=== PATIENT | male | born 1950 | race Caucasian/White ===

== ENCOUNTER 2018-08-23 05:48 | Inpatient (IN) ==
[2018-08-18 12:18] LABS: Apearance,Urine CLEAR (Clear); Bilirubin,Urine Negative (Negative); Blood, Urine Negative (Negative); Glucose,Urine (UA) Negative (Negative); Hyaline Casts,Urine 4 /LPF (0-3); Ketones,Urine 5 mg/dL (Negative); Mucus,Urine Occasional /LPF (Occasional); Nitrite,Urine Negative (Negative); Protein,Urine Negative; RBC,Urine <1 /HPF (0-4); Urine Color Amber (Yellow); WBC,Urine <1 /HPF (0-6)
[2018-08-18 12:20] LABS: Basophils # 0.1 10*3/uL (0.0-0.2); Basophils % 0.5 % (0.0-0.8); Eosinophils # 0.5 10*3/uL (0.0-0.87); Eosinophils % 5.9 % (0.00-10.9); Hematocrit 46.8 VOL% (42.0-52.0); Hemoglobin 15.8 GM/DL (14.0-18.0); Immature Granulocytes % 0.4 %; Lymphocytes # 4.6 10*3/uL (1.4-4.0); Lymphocytes % 49.9 % (21.2-54.2); Mean Corpuscular HGB Conc 33.8 GM/DL (32-36); Mean Corpuscular Hemoglobin 32 PG (27-34); Mean Corpuscular Volume 93.4 FL (87-102); Mean Platelet Volume 9.5 FL (9.6-12.0); Monocytes # 0.7 10*3/uL (0.11-0.8); Monocytes % 7.6 % (1.7-12.7); Neutrophils # 3.3 10*3/uL (1.4-7.4); Neutrophils % 35.7 % (38.7-73.9); Platelet Count 226 T/CUMM (130-400); Red Blood Count 5.01 MC/CUMM (3.8-5.5); Red Cell Distribution Width 13.2 % (9.3-17.3); White Blood Count 9.2 T/CUMM (4-12)
[2018-08-18 12:21] LABS: Immature Granulocytes Absolute 0.04 #
[2018-08-18 12:34] LABS: PT Patient Result 10.9 SECS; Partial Thromboplastin Time 24.7 SECS (0-40)
[2018-08-18 12:59] LABS: Albumin 3.8 G/DL (3.4-5.0); Bilirubin,Total 0.6 MG/DL (0.2-1.0); Calcium 8.6 MG/DL (8.5-10.1); Osmolality,Calculated 273.8 MOS/KG (273-304); Potassium 4.6 MMOL/L (3.5-5.1); Total Protein 7.6 G/DL (6.4-8.3)
[2018-08-18 13:01] LABS: Eosinophils 5 % (0-10); Lymphocytes 47 % (20-55); Platelet Estimate Normal; Segmented Neutrophils 46 % (50-85); Total Cells Counted 100
[2018-08-23] MEDS ORDERED: ceFAZolin 1,000 MG VIAL ONE (05:49)
[2018-08-23] MEDS ORDERED: VANCOMYCIN 1,000 MG VIAL ONE (05:49)
[2018-08-23] MEDS ORDERED: ceFAZolin 1,000 MG in SYRINGE 1 EACH IV ONE (06:00)
[2018-08-23] MEDS ORDERED: VANCOMYCIN INJ 1,000 MG in SODIUM CHLORIDE 0.9% 250 ML IV ONE (06:00)
[2018-08-23] MEDS ORDERED: TRANEXAMIC ACID 1,000 MG/10 ML VIAL ONE (06:27)
[2018-08-23] MEDS: LACTATED RINGERS 1,000 ML IV SCH (06:30)
[2018-08-23] MEDS ORDERED: ALBUTEROL 1.25 MG/3 ML NEB RESP TX STA (06:35)
[2018-08-23] MEDS ORDERED: ROPIVACAINE 0.5% 30 ML VIAL ONE (06:53)
[2018-08-23] MEDS ORDERED: BUPIVACAINE SPINAL 0.75% 2 ML AMP SPINAL ONE (06:53)
[2018-08-23] MEDS ORDERED: diphenhydrAMINE CAP 25 MG CAPSULE PO PRN (07:07)
[2018-08-23] MEDS ORDERED: MAGNESIUM HYDROXIDE SUSP 30 ML UDCUP PO PRN (07:07)
[2018-08-23] MEDS ORDERED: BISACODYL 10 MG SUPP RECTAL PRN (07:07)
[2018-08-23] MEDS ORDERED: ONDANSETRON 4 MG/2 ML VIAL IV PRN (07:07)
[2018-08-23] MEDS ORDERED: PROMETHAZINE 25 MG/1 ML VIAL IM PRN (07:07)
[2018-08-23] MEDS ORDERED: NALOXONE 0.4 MG/ML VIAL IV PRN (07:07)
[2018-08-23] MEDS ORDERED: LACTULOSE 20 GM/30 ML UDCUP PO PRN (07:07)
[2018-08-23] MEDS ORDERED: MORPHINE 4 MG/1 ML VIAL IV PRN (07:07)
[2018-08-23] MEDS ORDERED: TEMAZEPAM 7.5 MG CAPSULE PO PRN (07:07)
[2018-08-23] MEDS ORDERED: fentaNYL 100 MCG/2 ML VIAL ONE (08:57)
[2018-08-23] MEDS ORDERED: KETAMINE 500 MG/10 ML VIAL ONE (08:57)
[2018-08-23] MEDS ORDERED: PROPOFOL 200 MG/20 ML VIAL IV ONE (08:57)
[2018-08-23] MEDS ORDERED: MIDAZOLAM 2 MG/2 ML VIAL ONE (08:57)
[2018-08-23] MEDS ORDERED: PHENYLEPHRINE 1 MG/10 ML SYRINGE IV ONE (08:58)
[2018-08-23] MEDS ORDERED: SODIUM CHLORIDE 0.9% 100 ML IV ONE (08:58)
[2018-08-23] MEDS ORDERED: LACTATED RINGERS 1,000 ML IV ONE (08:58)
[2018-08-23] MEDS ORDERED: ASPIRIN CHEW 81 MG TABLET PO SCH (09:00)
[2018-08-23] MEDS: MORPHINE PCA 30 MG/30 ML SYRINGE IV SCH (10:05)
[2018-08-23] MEDS: amLODIPine 5 MG TABLET PO SCH (13:12)
[2018-08-23] MEDS: FENOFIBRATE 145 MG TABLET PO SCH (13:12)
[2018-08-23] MEDS: GABAPENTIN 300 MG CAPSULE PO SCH ×3 (13:12→22:09)
[2018-08-23] MEDS: ISOSORBIDE MONONITRATE 30 MG TABLET PO SCH (13:12)
[2018-08-23] MEDS: buPROPion 75 MG TABLET PO SCH ×2 (13:12→22:09)
[2018-08-23] MEDS: oxyCODONE/ACETAMINOPHEN 5-325 MG TABLET PO SCH ×3 (13:12→22:10)
[2018-08-23] MEDS: CARVEDILOL 25 MG TABLET PO SCH ×2 (13:12→22:09)
[2018-08-23] MEDS: ROSUVASTATIN 20 MG TABLET PO SCH (13:12)
[2018-08-23] MEDS: ASPIRIN EC 325 MG TABLET PO SCH (13:13)
[2018-08-23] MEDS: DOCUSATE SODIUM 100 MG CAPSULE PO SCH ×2 (13:13→22:09)
[2018-08-23] MEDS: ceFAZolin 1,000 MG in SYRINGE 1 EACH IV SCH ×2 (14:40→23:38)
[2018-08-23] MEDS: FONDAPARINUX 2.5 MG/0.5 ML SYRINGE SUBCUT SCH (22:11)
[2018-08-24] MEDS: MORPHINE PCA 30 MG/30 ML SYRINGE IV SCH (01:00)
[2018-08-24 05:35] LABS: Basophils % 0.2 % (0.0-0.8); Eosinophils # 0.3 10*3/uL (0.0-0.87); Eosinophils % 3.6 % (0.00-10.9); Immature Granulocytes % 0.3 %; Immature Granulocytes Absolute 0.03 #; Lymphocytes # 3.2 10*3/uL (1.4-4.0); Lymphocytes % 36.5 % (21.2-54.2); Mean Corpuscular HGB Conc 33.3 GM/DL (32-36); Mean Corpuscular Hemoglobin 31 PG (27-34); Mean Corpuscular Volume 93.8 FL (87-102); Mean Platelet Volume 9.6 FL (9.6-12.0); Monocytes # 0.8 10*3/uL (0.11-0.8); Monocytes % 8.9 % (1.7-12.7); Neutrophils # 4.4 10*3/uL (1.4-7.4); Neutrophils % 50.5 % (38.7-73.9); Platelet Count 166 T/CUMM (130-400); Red Blood Count 4.16 MC/CUMM (3.8-5.5); Red Cell Distribution Width 13.1 % (9.3-17.3); White Blood Count 8.7 T/CUMM (4-12)
[2018-08-24 06:00] LABS: Calcium 7.7 MG/DL (8.5-10.1); Osmolality,Calculated 276.7 MOS/KG (273-304)
[2018-08-24] MEDS: oxyCODONE/ACETAMINOPHEN 5-325 MG TABLET PO SCH ×3 (08:20→20:33)
[2018-08-24] MEDS: CARVEDILOL 25 MG TABLET PO SCH ×2 (08:22→20:33)
[2018-08-24] MEDS: ROSUVASTATIN 20 MG TABLET PO SCH (08:22)
[2018-08-24] MEDS: ASPIRIN EC 325 MG TABLET PO SCH (08:22)
[2018-08-24] MEDS: DOCUSATE SODIUM 100 MG CAPSULE PO SCH ×2 (08:22→20:34)
[2018-08-24] MEDS: ISOSORBIDE MONONITRATE 30 MG TABLET PO SCH (08:23)
[2018-08-24] MEDS: GABAPENTIN 300 MG CAPSULE PO SCH ×3 (08:23→20:33)
[2018-08-24] MEDS: amLODIPine 5 MG TABLET PO SCH (08:23)
[2018-08-24] MEDS: FENOFIBRATE 145 MG TABLET PO SCH (08:23)
[2018-08-24] MEDS: buPROPion 75 MG TABLET PO SCH ×2 (08:24→20:34)
[2018-08-24] MEDS: LACTATED RINGERS 1,000 ML IV SCH (13:08)
[2018-08-24] MEDS: FONDAPARINUX 2.5 MG/0.5 ML SYRINGE SUBCUT SCH (20:34)
[2018-08-25] MEDS: MORPHINE PCA 30 MG/30 ML SYRINGE IV SCH (03:20)
[2018-08-25] MEDS: MORPHINE 4 MG/1 ML VIAL IV PRN ×2 (07:52→13:52)
[2018-08-25] MEDS: ASPIRIN EC 325 MG TABLET PO SCH (09:07)
[2018-08-25] MEDS: ROSUVASTATIN 20 MG TABLET PO SCH (09:07)
[2018-08-25] MEDS: DOCUSATE SODIUM 100 MG CAPSULE PO SCH ×2 (09:07→21:22)
[2018-08-25] MEDS: CARVEDILOL 25 MG TABLET PO SCH ×2 (09:07→21:22)
[2018-08-25] MEDS: ISOSORBIDE MONONITRATE 30 MG TABLET PO SCH (09:08)
[2018-08-25] MEDS: oxyCODONE/ACETAMINOPHEN 5-325 MG TABLET PO SCH ×3 (09:08→21:21)
[2018-08-25] MEDS: GABAPENTIN 300 MG CAPSULE PO SCH ×3 (09:08→21:21)
[2018-08-25] MEDS: amLODIPine 5 MG TABLET PO SCH (09:08)
[2018-08-25] MEDS: buPROPion 75 MG TABLET PO SCH ×2 (09:09→21:22)
[2018-08-25] MEDS: FENOFIBRATE 145 MG TABLET PO SCH (09:09)
[2018-08-25] MEDS: FONDAPARINUX 2.5 MG/0.5 ML SYRINGE SUBCUT SCH (21:21)
[2018-08-26] MEDS: LACTATED RINGERS 1,000 ML IV SCH (07:51)
[2018-08-26] MEDS: oxyCODONE/ACETAMINOPHEN 5-325 MG TABLET PO SCH (08:36)
[2018-08-26] MEDS: GABAPENTIN 300 MG CAPSULE PO SCH (08:37)
[2018-08-26] MEDS: CARVEDILOL 25 MG TABLET PO SCH (08:37)
[2018-08-26] MEDS: ISOSORBIDE MONONITRATE 30 MG TABLET PO SCH (08:37)
[2018-08-26] MEDS: amLODIPine 5 MG TABLET PO SCH (08:37)
[2018-08-26] MEDS: ROSUVASTATIN 20 MG TABLET PO SCH (08:37)
[2018-08-26] MEDS: ASPIRIN EC 325 MG TABLET PO SCH (08:37)
[2018-08-26] MEDS: buPROPion 75 MG TABLET PO SCH (08:37)
[2018-08-26] MEDS: FENOFIBRATE 145 MG TABLET PO SCH (08:37)
[2018-08-26] MEDS: DOCUSATE SODIUM 100 MG CAPSULE PO SCH (08:39)
[2018-08-26 11:08] VITALS: BP 105/83
== END 2018-08-26 11:30 | DRG 470 ==
LOC: N.OR 05:48 → N.SDSINP 05:48 → N.3E 09:01
PROVIDERS: ADMIT Orthopaedic Surgery; ATTEND Orthopaedic Surgery